=== PATIENT | female | born 1955 | race Hispanic/Latino ===

== ENCOUNTER 2017-08-29 06:38 | Day surgery (SDC) | payer BC ==
[2017-08-28 10:39] VITALS: BMI 25.0
--- NOTE | 2017-08-29 00:29 | HP ---
SHORT STAY HISTORY AND PHYSICAL DATE OF ADMISSION: 08/29/2017 HISTORY OF PRESENT ILLNESS: This is a 61-year-old female who comes for a colonoscopy for colon cance r screening. The patient has no specific GI symptoms. She has no family history of colon cancer. ALLERGIES: None. SOCIAL HISTORY: The patient does not smoke, but drinks alcohol occasionally. MEDICAL ILLNESSES: 1. Gout. 2. Allergic rhinitis. 3. Chronic acid reflux. 4. Status post hysterectomy. 5. Status post bladder lift. PHYSICAL EXAMINATION: VITAL SIGNS: Pulse is 70, blood pressure 130/80. HEENT: Conjunctivae clear. CARDIOVASCULAR: First and second heart sound normal. LUNGS: Clear to auscultation. ABDOMEN: Soft to palpate. No organomegaly. No tenderness. No masses. ADMITTING DIAGNOSIS: A 61-year-old female who comes for a colonoscopy for colon cancer screening.
[2017-08-29] MEDS ORDERED: Lidocaine 1% PF 5 ML VIAL ONE (12:32)
[2017-08-29] MEDS ORDERED: PROPOFOL 200 MG/20 ML VIAL ONE (12:32)
--- NOTE | 2017-08-29 14:22 | OP ---
DATE OF PROCEDURE: 08/29/2017 SURGEON: Sher Louis M.D. OPERATIVE PROCEDURE: Colonoscopy. PREOPERATIVE DIAGNOSIS: A 61-year-old female undergoing colonoscopy for colon cancer screening. POSTOPERATIVE DIAGNOSIS: Normal colonoscopy except for hemorrhoids. PROCEDURE IN DETAIL: The patient was placed on her left lateral position and was given sedation by Anesthesia Department. A rectal exam was done before the scope was advanced into the rectum. No lesion felt on rectal exam except for small hemorrhoids. A [employer]ax video colonoscope was introduced into the rectum, advanced all the way into the cecum. The prep was good. The mucosa appeared normal. The cecum, no pathology seen. The appendical opening, ileocecal valve , cecum, no pathology seen. Withdrawal of scope in the cecum and ascending colon, hepatic flexure, no pathology seen. The transverse colon, splenic flexure, descending colon, and sigmoid colon, no pathology seen. Rectum showed small hemorrhoids. DISCHARGE PLANNING: This is a 61-year-old female who came for a colonoscopy for colon cancer screening. The patient underwent colonoscopy and had no pathology seen. The patient has no family history of colon cancer. Based on examination the recommendation is to repeat a colonoscopy in 10 years. CAY[facility]
== END 2017-08-29 09:31 | disposition home or self-care (01) ==
LOC: SDC 06:38
PROVIDERS: ATTEND Internal Medicine Gastroenterology
PROC: 0DJD8ZZ Inspection of Lower Intestinal Tract, Via Natural or Artificial Opening Endoscopic (ICD-10-PCS; principal; 2017-08-29)
DX: Z12.11 Encounter for screening for malignant neoplasm of colon (principal); K64.9 Unspecified hemorrhoids; M10.9 Gout, unspecified; K21.9 Gastro-esophageal reflux disease without esophagitis; J30.9 Allergic rhinitis, unspecified; Z79.899 Other long term (current) drug therapy
CPT/HCPCS: J2001; J2704